=== PATIENT | male | born 1935 | race Caucasian/White ===

== ENCOUNTER → 2024-12-19 10:20 | Outpatient (REF) | payer MEDICARE, BC, SELFPAY | LOC: HWRAD 10:20 | PROVIDERS: ATTENDING PHYSICIAN Internal Medicine | DX: F03.90 Unspecified dementia, unspecified severity, without behavioral disturbance, psychotic disturbance, mood disturbance, and anxiety (principal); G46.4 Cerebellar stroke syndrome | CPT/HCPCS: 70450 ==